=== PATIENT | male | born 1965 | race Caucasian/White ===

== ENCOUNTER → 2019-06-28 | Day surgery (SDC) | payer BC ==
[2019-06-11 17:15] LABS: BASOPHILS # (AUTO) 0.1 (0.0-0.1); BASOPHILS % 0.7 % (0.0-1.0); EOSINOPHILS # (AUTO) 0.2 (0.0-0.4); EOSINOPHILS % 2.8 % (0.0-6.0); HEMATOCRIT 51.9 % (38.2-49.6); LYMPHOCYTES # (AUTO) 1.1 (1.0-3.2); LYMPHOCYTES % 15.4 % (18.0-39.1); MEAN CORPUSCULAR HGB CONC 32.8 g/dL (31-35); MEAN CORPUSCULAR VOLUME 85.5 fL (81-99); MONOCYTES # (AUTO) 0.9 (0.2-0.8); MONOCYTES % 12.5 % (4.4-11.3); NEUTROPHILS # (AUTO) 4.7 (2.1-6.9); NEUTROPHILS % 68.2 % (38.7-80.0); PLATELET COUNT 266 x10e3/uL (140-360); RED BLOOD COUNT 6.07 x10e6/uL (4.3-5.7); RED CELL DISTRIBUTION WIDTH 14.4 % (11.7-14.4)
[2019-06-11 17:32] LABS: ALANINE AMINOTRANSFERASE 37 IU/L (0-55); ALBUMIN 4.2 g/dL (3.5-5.0); ALBUMIN/GLOBULIN RATIO 1.6 (0.8-2.0); ALKALINE PHOSPHATASE 85 IU/L (40-150); BLOOD UREA NITROGEN 16 mg/dL (7-26); BUN/CREATININE RATIO 17 (6-25); CALCIUM 9.4 mg/dL (8.4-10.2); CARBON DIOXIDE 23 mmol/L (22-29); CHLORIDE 105 mmol/L (98-107); CREATININE, SERUM 0.93 mg/dL (0.72-1.25); EST GLOMERULAR FILTRATION RATE > 60 ML/MIN (60-); GLUCOSE 82 mg/dL (74-118); SODIUM 138 mmol/L (136-145)
[~2019-06-28] MED LIST: ASPIRIN81 MG PO; BUPIVACAINE 0.25% 30ML SDV INJ ONE; DEXAMETHASONE SOD PHOS INJ 4 MG/ML VIAL ONE; EPHEDRINE SULFATE INJ 50 MG/ML VIAL ONE; FENTANYL CITRATE/PF 100MCG/2 ML INJ ONE; HYDROCODONE/APAP 7.5MG-325MG 1 EA TAB ONE; LIDOCAINE HCL 2% LOCAL INJ 5 ML SDV VIAL INJ ONE; LOSARTAN POTAS100 MG PO; METOPROLOL SUC100 MG PO; MIDAZOLAM HCL 2 MG/2 ML VIAL ONE; ONDANSETRON HCL INJ 2MG/ML 2ML 2 MG/ML VIAL ONE; PROPOFOL IV EMULSION 10 MG/ML 20 ML VIAL ONE; ROCURONIUM BROMIDE 10 MG/ML 5ML VIAL ONE; SERTRALINE HCL50 MG PO; TESTOSTERO200 MG/11 PO
[2019-06-28 16:45] VITALS: BP 124/59
--- NOTE | 2019-06-28 23:25 | Operative Report ---
DATE OF PROCEDURE: 06/28/2019 SURGEON: Daniel Brooks MD PREOPERATIVE DIAGNOSIS: Biliary dyskinesia and incarcerated umbilical hernia. POSTOPERATIVE DIAGNOSIS: Biliary dyskinesia and incarcerated umbilical hernia. OPERATION PERFORMED: Laparoscopic cholecystectomy and repair of umbilical hernia with Ventralex mesh. ASSISTANTS: 1. Darren Brooks MD. 2. VI Beth. ANESTHESIA: General. COMPLICATIONS: None. ESTIMATED BLOOD LOSS: Minimal. DESCRIPTION OF PROCEDURE: With the patient lying in bed in the supine position under good general anesthesia, the abdomen was prepped with Betadine solution and draped in the usual manner. A semilunar subumbilical incision was made, was carried down through the subcutaneous tissue down to the fascia. The hernia sac was then identified and encircled all the way around the umbilicus. It was then detached from the hernia sac. After this was done under direct vision, the hernia sac was opened. An 11 mm trocar was placed into the intraabdominal cavity and pneumoperitoneum was established without any difficulty. Under direct vision, three 5 mm trocars were placed in the right subcostal region. Video laparoscopy at this point revealed a somewhat distended gallbladder. The rest of the abdominal exploration was otherwise within normal limits. The peritoneum overlying the neck of the gallbladder was then opened and the cystic duct was identified. The cystic duct was slowly and carefully followed to its junction with the common duct. The cystic duct was then circumferentially dissected away from the common duct, doubly clipped and divided. The cystic artery was similarly doubly clipped and divided. The gallbladder was then slowly and carefully taken off the liver bed using the cautery scissors and perfect hemostasis was ascertained. The gallbladder was then grasped through the umbilical port and removed without any difficulty. Video laparoscopy was then again carried out. The liver bed was found to be perfectly dry. All the excess fluid was aspirated. The pneumoperitoneum was evacuated and all the trocars were removed under direct vision. The hernia at the umbilicus was then repaired. A subfascial plane was then developed in an extraperitoneal fashion at the level of the umbilical defect and this was dissected all the way around. A medium-sized Ventralex patch was then placed extraperitoneally into the subfascial pocket and deployed without any difficulty and the defect was then closed transversely using interrupted sutures of 0 Ethibond, making sure that the mesh was anchored on the closure. After this was done, the whole area was thoroughly irrigated. Perfect hemostasis was ascertained. All layers were infiltrated on the way out with solution of 0.25% Marcaine. The umbilicus was then tacked, back down to the midline fascia with 3-0 Vicryl. Subcutaneous tissue was approximated with 3-0 Vicryl and all incisions were closed with subcuticular 5-0 Vicryl. Benzoin, Steri-Strips, and dressings were applied. The sponge, lap, and needle count was correct. The patient tolerated both procedures well and returned to the recovery room in stable condition. MD FRANKLIN Muñoz/ISELA /[id number]
== END | disposition home or self-care (01) ==
LOC: OR 10:41
PROVIDERS: ATTEND Surgery
DX: K81.1 Chronic cholecystitis (principal); K42.0 Umbilical hernia with obstruction, without gangrene; I10 Essential (primary) hypertension; F41.9 Anxiety disorder, unspecified; Z88.0 Allergy status to penicillin; Z01.810 Encounter for preprocedural cardiovascular examination; Z01.812 Encounter for preprocedural laboratory examination; Z79.82 Long term (current) use of aspirin
CPT/HCPCS: 36415; 47562; 49587; 80053; 85025; 88304; 93005; C1766; C1781; J1100; J2001; J2250; J2405; J2704; J3010